=== PATIENT | male | born 1990 | race African-American/Black ===

== ENCOUNTER 2022-02-01 16:26 | Emergency (ER) | payer SELFPAY ==
[~2022-02-01] VITALS: Ht 182.9 cm; Wt 87.0 kg
[2022-02-01 20:20] LABS: BASOPHILS % 0.4 % (0.0-2.0); EOSINOPHILS % 0.1 % (0.0-5.0); HEMATOCRIT. 42.5 % (42.0-52.0); HEMOGLOBIN. 14.2 g/dL (14.0-18.0); LYMPHOCYTES % 10.8 % (20.0-50.0); MEAN CORPUSCULAR HEMOGLOBIN 28.8 pg (28.0-32.0); MEAN CORPUSCULAR VOLUME 86.1 fL (80.0-94.0); MEAN PLATELET VOLUME 7.5 fl (7.4-10.4); MONOCYTES % 8.9 % (2.0-8.0); NEUTROPHILS % 79.8 % (40.0-76.0); PLATELET 306 x1000/uL (130-400); RED BLOOD CELL COUNT 4.94 mill/uL (4.7-6.1); RED CELL DISTRIBUTION WIDTH 13.9 % (11.6-14.6)
[2022-02-01 20:26] LABS: CHLORIDE 110 mEq/L (98-107)
[2022-02-01 20:29] LABS: ETHANOL BLOOD < 10 mg/dL
[2022-02-01] MEDS ORDERED: DIPHENHYDRAMINE 50MG/ML VIAL IM STA (22:31)
[2022-02-01] MEDS ORDERED: HALOPERIDOL LACTATE 5MG/ML VIAL IM STA (22:31)
[2022-02-01] MEDS ORDERED: MIDAZOLAM HCL 2 MG/2 ML VIAL IM ONE (22:45)
[2022-02-01] MEDS ORDERED: MIDAZOLAM HCL 2 MG/2 ML VIAL IM NR (23:00)
[2022-02-02 00:32] LABS: *AMPHETAMINES SCREEN URINE PRESUMTIVE POSITIVE (NEGATIVE); *BARBITURATES SCREEN URINE NEGATIVE (NEGATIVE); *BENZODIAZEPINES SCREEN URINE PRESUMTIVE POSITIVE (NEGATIVE); *COCAINE SCREEN URINE NEGATIVE (NEGATIVE); CANNABINOID URINE SCREEN PRESUMTIVE POSITIVE (NEGATIVE); METHADONE URINE SCREEN NEGATIVE (NEGATIVE); OPIATES URINE SCREEN NEGATIVE (NEGATIVE); PHENCYCLIDINE URINE SCREEN NEGATIVE (NEGATIVE)
[2022-02-02 06:14] VITALS: BP 132/79
== END 2022-02-02 06:53 | disposition home or self-care (01) ==
LOC: EDBD 16:26 → ER 16:26
DX: F15.10 Other stimulant abuse, uncomplicated (principal); F16.10 Hallucinogen abuse, uncomplicated; F13.10 Sedative, hypnotic or anxiolytic abuse, uncomplicated; F12.10 Cannabis abuse, uncomplicated; F91.8 Other conduct disorders; R45.1 Restlessness and agitation; Z59.00 Homelessness unspecified
CPT/HCPCS: 36415; 70450; 80053; 80305; 80320; 85025; 96372; 99291; J1200; J1630; J2250; G0480